=== PATIENT | female | born 1995 | race African-American/Black ===

== ENCOUNTER 2021-02-07 15:48 | Emergency (ER) | payer OTHER ==
[~2021-02-07] VITALS: Ht 165.1 cm; Wt 52.6 kg
[2021-02-07 16:00] VITALS: BP_SYST 150
[2021-02-07] MEDS ORDERED: ACETAMINOPHEN 500 MG TABLET PO ONE (18:15)
[2021-02-07] MEDS ORDERED: KETOROLAC TROMETHAMINE 60 MG/2 ML VIAL IM ONE (18:15)
[2021-02-07] MEDS ORDERED: IBUP-1969 PO (18:30)
[2021-02-07] MEDS ORDERED: ACET-2634 PO (18:30)
[2021-02-07 18:51] VITALS: BP_SYST 150
== END 2021-02-07 18:51 | disposition home or self-care (01) ==
LOC: SED 15:48
DX: R07.89 Other chest pain (principal); Z79.899 Other long term (current) drug therapy; V49.49XA Driver injured in collision with other motor vehicles in traffic accident, initial encounter; Y93.89 Activity, other specified; Y92.89 Other specified places as the place of occurrence of the external cause; Y99.8 Other external cause status
CPT/HCPCS: 71045; 96372; 99283; J1885